=== PATIENT | female | born 1975 | race African-American/Black ===

== ENCOUNTER 2023-03-18 09:26 | Outpatient (CLI) | payer OTHER | END 2023-03-18 19:39 | disposition home or self-care (01) | LOC: MAMMO 09:26 | PROVIDERS: ATTEND Internal Medicine | DX: Z12.31 Encounter for screening mammogram for malignant neoplasm of breast (principal) ==

== ENCOUNTER 2023-04-05 10:06 | Outpatient (CLI) | payer OTHER | END 2023-04-05 19:22 | disposition home or self-care (01) | LOC: MAMMO 10:06 | PROVIDERS: ATTEND Internal Medicine | DX: R92.2 Inconclusive mammogram (principal) | CPT/HCPCS: G0279 ==